=== PATIENT | male | born 1995 | race Caucasian/White ===

== ENCOUNTER 2020-07-07 22:38 | Emergency (ER) | payer BC, MEDICAID, SELFPAY ==
[2020-07-07 22:32] VITALS: BP 128/87; PULSE 78; RESP 17; TEMP 36.6; O2SAT 99; BMI 39.1
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
[2020-07-07 22:51] VITALS: BP 123/77; PULSE 76; RESP 17; O2SAT 98
[2020-07-07 22:54] LABS: Basophils # 0.1 K/mm3 (0-0.2); Basophils % 0.7 % (0.1-2.0); Eosinophils # 0.4 K/mm3 (0.0-0.4); Eosinophils % 4.1 % (0.1-12.0); Hematocrit 51.6 % (42.0-52.0); Hemoglobin 17.2 g/dL (14.1-18.0); Lymphocytes # 3.5 K/mm3 (0.7-4.5); Lymphocytes % 36.4 % (10-50); Mean Corpuscular HGB Conc 33.3 g/dL (31.8-35.4); Mean Corpuscular Hemoglobin 29.7 pg (27.0-31.2); Monocytes # 0.5 K/mm3 (0.1-1.0); Monocytes % 5.1 % (1.7-9.3); Neutrophils # 5.2 K/mm3 (1.8-7.8); Neutrophils % 53.7 % (37.0-80.0); Platelet Count 255 K/mm3 (142-424); White Blood Count 9.7 K/mm3 (4.8-10.8)
[2020-07-07 22:56] LABS: Chloride 97 mmol/L (98-107)
[2020-07-07 22:57] LABS: Potassium 3.6 mmoL/L (3.5-5.1); Sodium 138 mmol/L (136-145)
[2020-07-07 22:59] LABS: Alanine Aminotransferase 32 U/L (12-78); Aspartate Amino Transferase 31 U/L (17-59); Blood Urea Nitrogen 14 mg/dl (9-20); Creatinine Clearance Estimated 195 mL/min (50-200); Estimated Glomerular Filt Rate 93 ml/min (>60); GFR (African American) 112 ML/MIN (>60)
[2020-07-07 23:00] LABS: Acetaminophen < 10 ug/ml (10-30); Albumin Level 4.7 g/dl (3.5-5.0); Albumin/Globulin Ratio 1.6 (1.1-1.8); Alkaline Phosphatase 46 U/L (38-126); Anion Gap 11.6 mEq/L (5-15); Bilirubin,Total 0.4 mg/dl (0.2-1.3); Calcium 9.5 mg/dl (8.4-10.2); Carbon Dioxide 33 mmol/L (22.0-30.0); Glucose 106 mg/dl (74-100); Salicylate < 1.0 mg/dL (2.0-20.0); Total Protein,Serum 7.7 g/dl (6.3-8.2)
[2020-07-07 23:04] LABS: Ethyl Alcohol < 10 mg/dl (0-10)
[2020-07-07 23:05] LABS: Benzodiazepines Screen,Urine Negative ng/ml (<200)
[2020-07-07 23:06] LABS: Amphetamine/Metha Screen,Urine Negative ng/ml (<1000)
[2020-07-07 23:07] LABS: Barbiturates Screen,Urine Negative ng/ml (<200); Cannabinoid Screen,Urine Positive ng/ml (<50)
[2020-07-07 23:08] LABS: Cocaine Screen,Urine Negative ng/ml (<300); Methadone Screen,Urine Negative ng/ml (<300)
[2020-07-07 23:09] LABS: Opiate Screen,Urine Positive ng/ml (<300)
[2020-07-07 23:10] LABS: Phencyclidine Screen,Urine Negative ng/ml (<25)
[2020-07-07 23:22] VITALS: BP 131/74; PULSE 74; O2SAT 97
--- NOTE | 2020-07-08 00:18 | PC.NURSE ---
called and spoke with samir juarez who stated she wouldn't be coming to get patient. patient is alert, oriented, verbal with clear speech. pt orientation is x4. samir juarez verbalized she had no one to come and get him.
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
[2020-07-08 01:15] VITALS: BP 123/82; PULSE 72; RESP 17; TEMP 36.6; O2SAT 98
== END 2020-07-08 01:15 | disposition home or self-care (01) ==
PROVIDERS: Emergency Provider Emergency Medicine
DX: T40.1X1A Poisoning by heroin, accidental (unintentional), initial encounter (principal); F17.210 Nicotine dependence, cigarettes, uncomplicated
CPT/HCPCS: 80053; 80305; 80329; 85025; 99283

== ENCOUNTER 2021-05-25 16:21 | Emergency (ER) | payer SELFPAY ==
[2021-05-25 16:24] VITALS: BP 113/75; PULSE 105; RESP 18; TEMP 37.1; O2SAT 98; BMI 29.7
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
[2021-05-25 17:32] VITALS: BP 113/65; PULSE 87; RESP 16; TEMP 36.6; O2SAT 98
== END 2021-05-25 17:33 | disposition home or self-care (01) ==
PROVIDERS: Emergency Provider Emergency Medicine; PCP Emergency Medicine
DX: S06.9X2 Unspecified intracranial injury with loss of consciousness of 31 minutes to 59 minutes (principal); R51.9 Headache, unspecified; H90.2 Conductive hearing loss, unspecified
CPT/HCPCS: 99281

== ENCOUNTER 2023-11-09 02:09 | Emergency (ER) | payer SELFPAY ==
[2023-11-09 02:11] VITALS: BP 142/84; PULSE 98; RESP 16; TEMP 36.8; O2SAT 99; BMI 32.5
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
[2023-11-09 02:38] VITALS: BP 142/84; PULSE 82; RESP 20; TEMP 37; O2SAT 98
== END 2023-11-09 02:39 ==
PROVIDERS: Emergency Provider Emergency Medicine
DX: Z02.89 Encounter for other administrative examinations (principal); F17.210 Nicotine dependence, cigarettes, uncomplicated
CPT/HCPCS: 99281

== ENCOUNTER 2024-02-27 14:29 | Emergency (ER) | payer OTHER, SELFPAY ==
[2024-02-27 14:40] VITALS: BP 117/75; PULSE 91; RESP 18; TEMP 36.8; O2SAT 98; BMI 34.0
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
[2024-02-27 15:58] VITALS: BP 117/75; PULSE 91; RESP 18; TEMP 36.8; O2SAT 98
== END 2024-02-27 15:58 | disposition home or self-care (01) ==
PROVIDERS: Emergency Provider Nurse Practitioner Family
DX: R07.1 Chest pain on breathing; R05.9 Cough, unspecified; F17.210 Nicotine dependence, cigarettes, uncomplicated; V49.9XXA Car occupant (driver) (passenger) injured in unspecified traffic accident, initial encounter
CPT/HCPCS: 71101; 99204; 99212; G0463